=== PATIENT | male | born 1960 | race Caucasian/White ===

== ENCOUNTER → 2017-04-17 | Outpatient (REF) | payer BC ==
[~2017-04-17] MED LIST: /LORA10TA PO; ACET50TA PO; AMLO10TA2 PO; ASPI81TA85 PO; ATOR40TA75 PO; BISO10TA PO; BISO10TA42 PO; BISO10TA6 PO; CLAR1TAB2 PO; CO Q10CA PO; FISH5CAP PO; FISHCAP PO; FLAX1200 PO; KLOR1TAB77 PO; LASI40TA PO; LEVO750T13 PO; LOSA50TA20 PO; MAGN1TAB25 PO; MULT1TAB8 PO; MULTTAB4 PO; OMEP20CA3 PO; PERC5TAB12 PO; PERCOCET PO; PRAV40TA2 PO; TYLE1TAB5 PO; TYLE325T5 PO
== END ==
LOC: M LAB REF 12:04
PROVIDERS: ATTEND Internal Medicine
DX: Z01.89 Encounter for other specified special examinations (principal)

== ENCOUNTER → 2018-08-01 | Outpatient (REF) | payer BC | LOC: M LAB REF 12:39 | DX: K57.30 Diverticulosis of large intestine without perforation or abscess without bleeding (principal); K21.9 Gastro-esophageal reflux disease without esophagitis | CPT/HCPCS: 83993 ==

== ENCOUNTER → 2019-10-14 | Outpatient (REF) | payer MEDICARE, BC ==
[~2019-10-14] MED LIST changes: -/LORA10TA PO; -ACET50TA PO; +AMLO10TA5 PO; -BISO10TA PO; +BISO10TA13 PO; +LASI40TA9 PO; +LORA-385 PO; +LOSA50TA88 PO; -MAGN1TAB25 PO; +MAGN1TAB26 PO; +MAPA500T17 PO; +OMEP1CAP73 PO; -OMEP20CA3 PO
[2019-10-17 11:46] LABS: HEPATITIS A ANTIBODY IGM NEGATIVE (NEGATIVE); HEPATITIS B CORE ANTIBODY IGM NEGATIVE (NEGATIVE); HEPATITIS B SURFACE ANTIGEN NEGATIVE (NEGATIVE); HEPATITIS C VIRUS ABY INDEX < 0.0 INDEX (<0.8)
== END ==
LOC: M LAB REF 17:08
PROVIDERS: ATTEND Internal Medicine
DX: R74.8 Abnormal levels of other serum enzymes (principal)

== ENCOUNTER → 2019-10-21 | Outpatient (REF) | payer MEDICARE, BC | LOC: M LAB REF 12:54 | PROVIDERS: ATTEND Internal Medicine | DX: N52.9 Male erectile dysfunction, unspecified (principal) ==

== ENCOUNTER → 2020-05-17 | Outpatient (CLI) | payer MEDICARE, BC ==
[~2020-05-17] MED LIST changes: -AMLO10TA5 PO; +AMLO1TAB25 PO; +ASPI81TA86 PO
--- NOTE | 2020-06-11 15:22 | SLEEPCENT ---
DATE: 05/17/2020 ORDERED BY: Dr. Lepe Nocturnal polysomnography was performed for the titration of pressure therapy in this patient with a known history of obstructive sleep apnea syndrome. For testing, a ResMed AirFit F20 full-face mask of medium size was used. An initial bilevel pressure of 14 inspiratory over 10 expiratory was applied to the circuit, and the lights were extinguished. There was 6 hours and 44 minutes of data reviewed. There was 326.5 minutes of sleep identified. Sleep latency was mildly prolonged at 16.5 minutes. REM latency was normal at 76 minutes. Sleep architecture was good with five REM cycles noted. Overall sleep efficiency was 81.6%. The electrocardiogram showed a supraventricular rhythm with some irregularity. Average heart rate was 60 beats per minute. Rate ranged 40-70. EEG was normal for wake and for sleep stages. There were no focal events identified. Respiratory events were fully palliated at the initial bilevel pressure. Late in the study, oxygen was added for unclear reasons. Very little limb activity appreciable. IMPRESSION: Obstructive sleep apnea syndrome (G47.33). RECOMMENDATION: Nightly use of bilevel pressure therapy, inspiratory 14 over expiratory of 10 was sufficient to address the patient's apneic events. MTDD
== END ==
LOC: M SLEEP 20:00
PROVIDERS: ATTEND Internal Medicine Pulmonary Disease
DX: G47.33 Obstructive sleep apnea (adult) (pediatric) (principal)

== ENCOUNTER → 2020-09-07 | Outpatient (CLI) | payer SELFPAY | LOC: M LABSMTC 17:29 | PROVIDERS: ATTEND Pediatrics | DX: Z11.59 Encounter for screening for other viral diseases (principal) ==

== ENCOUNTER → 2020-09-30 | Outpatient (CLI) | payer SELFPAY | LOC: M LABSMTC 13:20 | PROVIDERS: ATTEND Pediatrics | DX: Z20.828 Contact with and (suspected) exposure to other viral communicable diseases (principal) ==

== ENCOUNTER → 2020-10-25 | Outpatient (CLI) | payer SELFPAY | LOC: M LABSMTC 13:54 | PROVIDERS: ATTEND Pediatrics | DX: Z20.822 Contact with and (suspected) exposure to COVID-19 (principal) ==

== ENCOUNTER → 2021-10-05 | Outpatient (REF) | payer MEDICARE, BC | LOC: M LAB REF 13:47 | PROVIDERS: ATTEND Internal Medicine Gastroenterology | DX: R19.7 Diarrhea, unspecified (principal) ==

== ENCOUNTER 2022-02-10 11:04 | Outpatient (CLI) | payer MEDICARE, BC ==
[~2022-02-10] VITALS: Ht 185.4 cm; Wt 140.0 kg
[~2022-02-10 11:04] MED LIST changes: +ALBUTEROL SULFATE 2.5 MG/0.5 ML INH NEB SOLN INH PRN; +EPINEPHrine INJ 1 MG/ML 1ML AMP IM PRN; +LOSA50TA28 PO; -LOSA50TA88 PO; +diphenhydrAMINE 50MG/ML VIAL (J1200) IV PRN; +methylPREDNISolone 125MG 2ML VIAL IV PRN
[2022-02-10] MEDS ORDERED: NS 1,000 ML IV SCH (11:10)
[2022-02-10] MEDS ORDERED: diphenhydrAMINE 50MG/ML VIAL (J1200) IV ONE (11:10)
[2022-02-10] MEDS ORDERED: BEBTELOVIMAB 175MG 2ML VIAL (EUA) IV ONE (12:00)
[2022-02-10 12:47] VITALS: BP 142/65
[2022-02-10 13:17] VITALS: BP 149/65
[2022-02-10 13:47] VITALS: BP 139/62
== END 2022-02-10 14:04 | disposition home or self-care (01) ==
LOC: M OPCLI4PR 11:04 → M 4MAIN 11:08 → M OPCLI4PR 14:04
PROVIDERS: ATTEND Internal Medicine Infectious Disease
DX: U07.1 COVID-19 (principal); Z88.5 Allergy status to narcotic agent
CPT/HCPCS: J1200; M0222

== ENCOUNTER → 2022-05-30 | Outpatient (CLI) | payer MEDICARE, BC ==
[~2022-05-30] MED LIST changes: -ALBUTEROL SULFATE 2.5 MG/0.5 ML INH NEB SOLN INH PRN; -EPINEPHrine INJ 1 MG/ML 1ML AMP IM PRN; +GASTROGRAFIN SOLUTION 30ML (Q9963) As Ordered ONE; +ISOVUE-370 76% 100ML VIAL As Ordered ONE; +LEVO1TAB40 PO; -LEVO750T13 PO; -diphenhydrAMINE 50MG/ML VIAL (J1200) IV PRN; -methylPREDNISolone 125MG 2ML VIAL IV PRN
[2022-05-30 17:15] LABS: AMYLASE 30 U/L (25-115); LIPASE 138 U/L (73-393)
== END ==
LOC: M RAD 14:39
PROVIDERS: ATTEND Registered Nurse
DX: R10.9 Unspecified abdominal pain (principal)
CPT/HCPCS: 74177; 82150; 83690; Q9963; Q9967

== ENCOUNTER → 2022-06-01 | Outpatient (REF) | payer MEDICARE, BC ==
[~2022-06-01] MED LIST changes: -GASTROGRAFIN SOLUTION 30ML (Q9963) As Ordered ONE; -ISOVUE-370 76% 100ML VIAL As Ordered ONE
[2022-06-01 17:05] LABS: INR 1.17; PROTHROMBIN TIME 15.3 SECONDS (12.7-14.5)
[2022-06-01 17:06] LABS: PARTIAL THROMBOPLASTIN TIME 30.1 SECONDS (25.9-37.0)
== END ==
LOC: M LAB REF 16:05
PROVIDERS: ATTEND Internal Medicine
DX: R23.3 Spontaneous ecchymoses (principal)

== ENCOUNTER → 2022-07-31 | Outpatient (REF) | payer MEDICARE, BC | LOC: M LAB REF 12:01 | PROVIDERS: ATTEND Internal Medicine | DX: R19.7 Diarrhea, unspecified (principal); K21.9 Gastro-esophageal reflux disease without esophagitis; E56.9 Vitamin deficiency, unspecified ==

== ENCOUNTER → 2022-11-06 | Outpatient (REF) | payer MEDICARE, BC ==
[2022-11-08 04:07] LABS: LDL DIRECT 53 mg/dL (0-99)
== END ==
LOC: M LAB REF 16:14
PROVIDERS: ATTEND Internal Medicine
DX: E78.00 Pure hypercholesterolemia, unspecified (principal)

== ENCOUNTER → 2022-11-29 | Outpatient (CLI) | payer MEDICARE, BC | LOC: M WUC 13:16 | PROVIDERS: ATTEND Internal Medicine | DX: J98.11 Atelectasis (principal); Z95.818 Presence of other cardiac implants and grafts; Z79.899 Other long term (current) drug therapy ==

== ENCOUNTER → 2023-02-07 | Outpatient (REF) | payer MEDICARE, BC ==
[2023-02-07 13:18] LABS: C REACTIVE PROTEIN QUANTITATIV < 0.40 MG/DL (<1.0)
[2023-02-07 13:19] LABS: RHEUMATOID FACTOR QUANT 17.3 IU/ML (<14)
[2023-02-07 13:39] LABS: HEPATITIS B SURFACE ANTIGEN NEGATIVE (NEGATIVE)
[2023-02-08 19:07] LABS: CYCLIC CITRULLINATED PEPTIDE 5 units (0-19); IMMUNOTYPING SERUM IGA SO 290 mg/dL (61-437); IMMUNOTYPING SERUM IGM SO 117 mg/dL (20-172)
== END ==
LOC: M LAB REF 12:08
PROVIDERS: ATTEND Internal Medicine
DX: R76.0 Raised antibody titer (principal)

== ENCOUNTER → 2023-12-04 | Outpatient (REF) | payer MEDICARE, BC ==
[2023-12-04 18:45] LABS: FERRITIN 13.2 NG/ML (10.5-307.3)
== END ==
LOC: M LAB REF 17:30
PROVIDERS: ATTEND Internal Medicine
DX: M19.90 Unspecified osteoarthritis, unspecified site (principal); R53.83 Other fatigue; Z79.84 Long term (current) use of oral hypoglycemic drugs; Z86.39 Personal history of other endocrine, nutritional and metabolic disease

== ENCOUNTER → 2024-06-17 | Outpatient (REF) | payer MEDICARE ==
[2024-06-17 13:59] LABS: C REACTIVE PROTEIN QUANTITATIV < 0.40 MG/DL (<1.0)
[2024-06-17 16:39] LABS: RHEUMATOID FACTOR QUANT 36.8 IU/ML (<14)
== END ==
LOC: M LAB REF 13:06
PROVIDERS: ATTEND Internal Medicine
DX: R76.0 Raised antibody titer (principal)